=== PATIENT | female | born 1995 ===

== ENCOUNTER 2020-10-04 17:58 | Inpatient (IN) ==
[2020-10-04] MEDS ORDERED: Dinoprostone 10 MG VAG.SUPP VAGINAL ONE (19:19)
[2020-10-04] MEDS ORDERED: Lactated Ringers 1000 ml BAG 1,000 ML IV ONE (19:19)
[2020-10-04] MEDS ORDERED: Buffered Lidocaine 1% SYRIN 1 ml INTRADERM ONE (19:19)
[2020-10-04] MEDS ORDERED: Lactated Ringers 1000 ml BAG 1,000 ML IV SCH (20:00)
[2020-10-04 20:40] LABS: Urine Benzodiazepine Screen None Detected (None Detect); Urine Cannabinoids Screen None Detected (None Detect); Urine Opiates Screen None Detected (None Detect)
[2020-10-05] MEDS ORDERED: Insulin NPH 100 units/ml SUBCUT ONE (01:30)
[2020-10-05 07:40] LABS: Hematocrit 40 % (35-47); Hemoglobin 13.5 g/dL (12.0-16.0); Mean Corpuscular HGB Conc 34 g/dL (31-36); Mean Corpuscular Hemoglobin 33 pg (27-31); Mean Corpuscular Volume 99 fL (80-97); Mean Platelet Volume 13.3 fL (7.4-10.4); Platelet Count 151 10^3/uL (150-450); Red Blood Count 4.06 10^6 /uL (3.70-4.87); Red Cell Distribution Width 15 % (10-15); White Blood Count 7.9 10^3/uL (3.5-10.8)
[2020-10-05 09:06] LABS: ABS Basophils 0.1 10^3/ul (0-0.2); ABS Eosinophils 0.1 10^3/ul (0-0.6); ABS Lymphocytes 2.1 10^3/ul (1.0-4.8); ABS Monocytes 0.5 10^3/ul (0-0.8); ABS Neutrophils 5.1 10^3/ul (1.5-7.7); Eosinophil % 0.9 %; Lymphocyte % 27.1 %; Nucleated Red Blood Cells % 0.2
[2020-10-05] MEDS ORDERED: OBEPIDURAL 250 ML EPIDURAL ONE (09:53)
[2020-10-05] MEDS ORDERED: fentaNYL 100 mcg/2 ml 50 MCG/ML VIAL ONE (10:29)
[2020-10-05] MEDS ORDERED: Phenylephrine 40 mcg/mL 10mL (400mcg) SYRINGE IV PUSH PRN (11:20)
[2020-10-05] MEDS ORDERED: Lactated Ringers 1000 ml BAG 1,000 ML IV ONE (11:20)
[2020-10-05] MEDS ORDERED: EPHEDrine (Pressors) 50 MG/ML VIAL IV PUSH PRN (11:20)
[2020-10-05] MEDS ORDERED: Sodium Citrate/Citric Acid LIQ 15 ML UDC PO PRN (11:20)
[2020-10-05] MEDS ORDERED: Lactated Ringers 1000 ml BAG 1,000 ML IV SCH (12:00)
[2020-10-05] MEDS ORDERED: OBEPIDURAL 250 ML EPIDURAL SCH (12:00)
[2020-10-05] MEDS ORDERED: Oxytocin in LR 20 UNITS/1,000 ML BAG IVPB SCH (20:00)
[2020-10-05] MEDS ORDERED: D5LR 1000 ml BAG 1,000 ML IV SCH (21:00)
[2020-10-06] MEDS ORDERED: NS 0.9% 100 ml BAG 100 ML ONE (01:17)
[2020-10-06] MEDS: Ampicillin ADVAN 2 GM in NS 0.9% 100 ml BAG 100 ML IVPB SCH ×4 (01:23→20:24)
[2020-10-06] MEDS ORDERED: NS 0.9% IVPB ONE (01:30)
[2020-10-06] MEDS ORDERED: GENTAMICIN ADULT IVPB ONE (01:30)
[2020-10-06] MEDS ORDERED: Chloroprocaine 3% 20 ml VIAL ONE (01:41)
[2020-10-06] MEDS ORDERED: Oxytocin 10 UNITS/ML 1 ML VIAL ONE ×2 (01:54→02:11)
[2020-10-06] MEDS ORDERED: Bupivacaine 0.25% SDV PF 10 ML VIAL INJ ONE (02:27)
[2020-10-06] MEDS ORDERED: fentaNYL 100 mcg/2 ml 50 MCG/ML VIAL ONE (02:28)
[2020-10-06] MEDS: Clindamycin 900 MG/D5W BAG 900 MG/50 ML BAG IVPB SCH ×3 (02:36→18:33)
[2020-10-06] MEDS ORDERED: Dexamethasone IV 4 MG/ML VIAL 1 ml VIAL ONE (02:58)
[2020-10-06] MEDS ORDERED: Ondansetron 4 mg VIAL 2 MG/ML 2 ml VIAL IV PRN (03:03)
[2020-10-06] MEDS ORDERED: HYDROcodone/ACETAMIN 5/325 mg TAB PO PRN (03:03)
[2020-10-06] MEDS ORDERED: fentaNYL 100 mcg/2 ml 50 MCG/ML VIAL IV PRN (03:03)
[2020-10-06] MEDS ORDERED: Naloxone 0.4 mg VIAL 0.4 mg/ml 1 ml VIAL IV PRN (03:03)
[2020-10-06] MEDS ORDERED: DiMENhydriNATE IV 50 mg/ml 1 ml VIAL IV PUSH PRN (03:03)
[2020-10-06] MEDS ORDERED: Bupivacaine 0.5% SDV PF 30ML VIAL ONE (03:06)
[2020-10-06] MEDS ORDERED: Witch Hazel PAD JAR TOPICAL PRN (03:17)
[2020-10-06] MEDS ORDERED: Dibucaine 1% OINT 28.35 GM TUBE PR PRN (03:17)
[2020-10-06] MEDS ORDERED: Glycerin ADULT 2.4 gm SUPP PR PRN (03:17)
[2020-10-06] MEDS ORDERED: Oxytocin in LR 20 UNITS/1,000 ML BAG IVPB SCH (04:00)
[2020-10-06] MEDS ORDERED: Lactated Ringers 1000 ml BAG 1,000 ML IV SCH (04:00)
[2020-10-06 06:57] LABS: Urine Appearance Clear; Urine Bilirubin Negative (Negative); Urine Blood 2+ (Negative); Urine Color Yellow; Urine Glucose Negative (Negative); Urine Ketones Negative (Negative); Urine Nitrite Negative (Negative); Urine Protein Negative (Negative); Urine Specific Gravity 1.009 (1.010-1.030); Urine Urobilinogen Negative (Negative)
[2020-10-06 07:00] LABS: Urine Bacteria 1+ (Absent); Urine Red Blood Cell 3+(>10/hpf) (Absent); Urine White Blood Cell Trace(0-5/hpf) (Absent)
[2020-10-07] MEDS: Ampicillin ADVAN 2 GM in NS 0.9% 100 ml BAG 100 ML IVPB SCH ×2 (01:56→08:20)
[2020-10-07] MEDS: Clindamycin 900 MG/D5W BAG 900 MG/50 ML BAG IVPB SCH ×2 (02:40→08:57)
[2020-10-07 07:25] LABS: ABS Basophils 0.1 10^3/ul (0-0.2); ABS Eosinophils 0.1 10^3/ul (0-0.6); ABS Lymphocytes 1.9 10^3/ul (1.0-4.8); ABS Monocytes 0.6 10^3/ul (0-0.8); ABS Neutrophils 10.6 10^3/ul (1.5-7.7); Hematocrit 29 % (35-47); Hemoglobin 9.9 g/dL (12.0-16.0); Lymphocyte % 14.2 %; Mean Corpuscular HGB Conc 34 g/dL (31-36); Mean Corpuscular Hemoglobin 33 pg (27-31); Mean Corpuscular Volume 99 fL (80-97); Mean Platelet Volume 12.1 fL (7.4-10.4); Platelet Count 109 10^3/uL (150-450); Red Blood Count 2.97 10^6 /uL (3.70-4.87); Red Cell Distribution Width 16 % (10-15); White Blood Count 13.3 10^3/uL (3.5-10.8)
[2020-10-08] MEDS ORDERED: Measles, Mumps,Rubella VACC 0.5 ML/VIAL SUBCUT ONE (11:00)
[2020-10-08] MEDS ORDERED: Varicella Virus Vaccine Live 0.5 ML VIAL SUBCUT ONE (11:00)
[2020-10-09 07:59] VITALS: BP 116/71
== END 2020-10-09 14:25 | disposition home or self-care (01) | DRG 786 ==
LOC: MCHOBOUT 17:58 → MCHOB 19:55
PROVIDERS: ADMIT Obstetrics & Gynecology; ATTEND Obstetrics & Gynecology